=== PATIENT | male | born 2000 | race African-American/Black ===

== ENCOUNTER 2018-04-30 16:22 | Emergency (ER) | payer MEDICAID ==
[~2018-04-30] VITALS: Ht 185.4 cm; Wt 97.7 kg
[2018-04-30] MEDS: SULFAMETHOX/TRIMETH DS 800-160 MG/TABLET PO ONE (17:34)
[2018-04-30] MEDS: IBUPROFEN 800 MG TABLET PO ONE (17:34)
[2018-04-30] MEDS: DiphenhydrAMINE HCL 25 MG CAPSULE PO ONE (17:34)
[2018-04-30 17:40] VITALS: BP 148/68
== END 2018-04-30 17:42 | disposition home or self-care (01) ==
LOC: EMS 16:22
DX: L03.113 Cellulitis of right upper limb (principal); S50.861A Insect bite (nonvenomous) of right forearm, initial encounter; W57.XXXA Bitten or stung by nonvenomous insect and other nonvenomous arthropods, initial encounter; Y93.89 Activity, other specified; Y92.89 Other specified places as the place of occurrence of the external cause; Y99.8 Other external cause status
CPT/HCPCS: 99284